=== PATIENT | female | born 1965 | race Caucasian/White ===

== ENCOUNTER 2018-03-04 07:09 | Day surgery (SDC) | payer OTHER ==
[2018-03-04] MEDS ORDERED: PROPOFOL 40 ML (07:55)
== END 2018-03-04 09:55 | disposition home or self-care (01) ==
LOC: GIL 07:09
DX: Z12.11 Encounter for screening for malignant neoplasm of colon (principal); K64.4 Residual hemorrhoidal skin tags
CPT/HCPCS: 45378